=== PATIENT | female | born 1990 | race Caucasian/White ===

== ENCOUNTER 2016-07-16 10:20 | Emergency (ER) | payer SELFPAY ==
[2016-07-16 10:45] VITALS: BP 105/56
[2016-07-16] MEDS ORDERED: Cyclobenzaprine TAB* 10 MG PO ONE (11:19)
[2016-07-16] MEDS ORDERED: Ketorolac INJ* 60 MG/2 ML VIAL IM ONE (11:19)
--- NOTE | 2016-08-10 13:39 | ED ---
Back Pain - HPI Summary HPI Summary: Patient presents with back pain that began after doing heavy lifting at work. She felt a "pop" and has pain that shoots down into bilateral posterior thighs. Her pain is aggrevated with sitting position and improves when laying down. She had a similar episode several years ago. She denies incontinence of urine or stool, no N/T or difficulty ambulating. - History of Current Complaint Chief Complaint: EDBackInjuryPain Stated Complaint: BACK, LEG PAIN Time Seen by Provider: 07/16/16 10:55 Hx Obtained From: Patient Hx Last Menstrual Period: 08/29/14 Onset/Duration: Sudden Onset Onset/Duration: Started Hours Ago Timing: Constant Back Pain Location: Radiates To - bilateral thighs Severity Initially: Moderate Severity Currently: Mild Pain Intensity: 2 Pain Scale Used: 0-10 Numeric Character: Aching, Stiffness Aggravating Symptom(s): Movement, Bending Alleviating Symptom(s): Position Associated Signs And Symptoms: Positive: Negative Related History: Similar Episode Dx As - Allergies/Home Medications Allergies/Adverse Reactions: Allergies Allergy/AdvReac Type Severity Reaction Status Date / Time Amoxicillin Allergy Hives Verified 11/27/14 08:26 PMH/Surg Hx/FS Hx/Imm Hx Previously Healthy: Yes Endocrine/Hematology History: Denies: Hx Anticoagulant Therapy, Hx Diabetes, Hx Thyroid Disease Cardiovascular History: Denies: Hx Hypertension, Hx Pacemaker/ICD Respiratory History: Denies: Hx Asthma, Hx Chronic Obstructive Pulmonary Disease (COPD) GI History: Denies: Hx Ulcer History: Denies: Hx Renal Disease Sensory History: Reports: Hx Contacts or Glasses - READING GLASSES Denies: Hx Hearing Aid Opthamlomology History: Reports: Hx Contacts or Glasses - READING GLASSES Neurological History: Denies: Hx Dementia, Hx Seizures Psychiatric History: Denies: Hx Substance Abuse - Surgical History Surgery Procedure, Year, and Place: Tonsillectomy and adenoidectomy, tubes in ears as a child, right FOOT SURGERY 02/2013 Hx Anesthesia Reactions: No Infectious Disease History: No Infectious Disease History: Denies: Hx Clostridium Difficile, Hx Hepatitis, Hx Human Immunodeficiency Virus (HIV), Hx of Known/Suspected MRSA, Hx Shingles, Hx Tuberculosis, Hx Known/ Suspected VRE, Hx Known/Suspected VRSA, History Other Infectious Disease, Traveled Outside the [place] in Last 30 Days - Family History Known Family History: Positive: Cardiac Disease - Social History Occupation: Employed Full-time Lives: With Family Alcohol Use: Rare Substance Use Type: Reports: None Smoking Status (MU): Light Every Day Tobacco Smoker Type: Cigarettes Amount Used/How Often: 2-3 cigs daily Cessation Counseling: Patient Advised to Stop Review of Systems Positive: Myalgia Negative: Weakness, Paresthesia, Numbness All Other Systems Reviewed And Are Negative: Yes Physical Exam Triage Information Reviewed: Yes Vital Signs On Initial Exam: Initial Vitals Temp Pulse Resp BP Pulse Ox 97.5 F 79 24 147/99 100 07/16/16 10:28 07/16/16 10:28 07/16/16 10:28 07/16/16 10:28 07/16/16 10:28 Vital Signs Reviewed: Yes Appearance: Positive: Well-Appearing, Pain Distress, Obese Skin: Positive: Warm, Skin Color Reflects Adequate Perfusion, Dry, Soft Head/Face: Positive: Normal Head/Face Inspection Eyes: Positive: EOMI, DAVID, Conjunctiva Clear ENT: Positive: Hearing grossly normal Respiratory/Lung Sounds: Positive: Breath Sounds Present Cardiovascular: Positive: RRR Abdomen Description: Positive: Nontender, Soft Musculoskeletal: Positive: Strength/ROM Intact, Pain @ - TTP bilateral SI joints ; non-tender over buttocks to bilateral posterior thighs. Negative: Edema Left , Edema Right Neurological: Positive: Sensory/Motor Intact, Alert, Oriented to Person Place, Time, NV Bundle Intact Distally, Normal Gait Psychiatric: Positive: Affect/Mood Appropriate AVPU Assessment: Alert - Gould Coma Scale Coma Scale Total: 15 Diagnostics - Vital Signs Vital Signs Temp Pulse Resp BP Pulse Ox 07/16/16 10:41 98.4 F 78 15 105/56 100 07/16/16 10:28 97.5 F 79 24 147/99 100 - Laboratory Lab Statement: Any lab studies that have been ordered have been reviewed, and results considered in the medical decision making process. Re-Evaluation - Re-Evaluation First Eval Re-Evaluation Time: 12:45 Change: Improved Comment: Pain has diminished Back Pain Course/Dx - Diagnoses Differential Diagnosis/HQI/PQRI: Positive: Arthritis, Cauda Equina Syndrome, Fracture, Herniated Disc, Strain, Sprain Provider Diagnoses: Low back strain Discharge - Discharge Plan Condition: Stable Disposition: HOME Prescriptions: Cyclobenzaprine TAB* [Flexeril 10 MG TAB*] 10 mg PO TID PRN #15 tab PRN Reason: Pain Ibuprofen TAB* [Motrin TAB* 800 MG] 800 mg PO TID PRN #60 tab PRN Reason: Pain Patient Education Materials: Low Back Strain (ED) Forms: *Work Release Referrals: Dale Yañez MD [Primary Care Provider] - Additional Instructions: Please begin taking ibuprofen 800mg three times daily with meals tomorrow at lunch for the next 3-5 days. Use the muscle relaxer for muscle pain. Apply heat or ice several times daily and rest. Follow-up with your primary care provider if your symptoms do not begin to improve in the next 3-5 days. Return to the emergency department if symptoms worsen.
== END 2016-07-16 13:21 | disposition home or self-care (01) ==
LOC: ED 10:20
DX: M79.606 Pain in leg, unspecified (principal); S39.012A Strain of muscle, fascia and tendon of lower back, initial encounter; X58.XXXA Exposure to other specified factors, initial encounter; Y93.9 Activity, unspecified; Y92.89 Other specified places as the place of occurrence of the external cause; Y99.9 Unspecified external cause status
CPT/HCPCS: 96372; 99282; A9270-GY; J1885

== ENCOUNTER 2019-02-15 14:25 | Emergency (ER) | payer SELFPAY ==
[2019-02-15 14:35] VITALS: BP 116/74
--- NOTE | 2019-02-15 14:46 | UC ---
Throat Pain/Nasal Wilber HPI - HPI Summary HPI Summary: 28 yo with acute vomiting illness 5 days ago which resolved completely. Four days ago, developed a sore raspy throat and progressive cough with some chest tightness. Hx of asthma as a child, no recent need for inhalers. Former smoker, but is exposed to smoke within the home. Several months ago had a temporary filling in an upper molar, and has not had follow up due to a change in insurance. Today she is aware of sensitivity in the tooth along with swelling of the left cheek. No fever since 2 days ago. - History of Current Complaint Chief Complaint: UCRespiratory Stated Complaint: FACIAL SWELLING Time Seen by Provider: 02/15/19 14:36 Hx Obtained From: Patient Hx Last Menstrual Period: last month ?: No Onset/Duration: Gradual Onset, Lasting Days Severity: Moderate Pain Intensity: 7 Cough: Nonproductive Associated Signs & Symptoms: Positive: Sinus Discomfort, Fever. Negative: Dysphagia, Wheezing - Epiglottits Risk Factors Epiglottis Risk Factors: Negative - Allergies/Home Medications Allergies/Adverse Reactions: Allergies Allergy/AdvReac Type Severity Reaction Status Date / Time amoxicillin Allergy Hives Verified 02/15/19 14:35 PMH/Surg Hx/FS Hx/Imm Hx Previously Healthy: Yes Other History Of: Negative For: Anticoagulant Therapy - Surgical History Surgical History: Yes Surgery Procedure, Year, and Place: Tonsillectomy and adenoidectomy, tubes in ears as a child, right FOOT SURGERY 02/2013 - Family History Known Family History: Positive: Diabetes - mother has re-diabetes. - Social History Occupation: Employed Full-time Lives: With Family Alcohol Use: Rare Substance Use Type: None Smoking Status (MU): Former Smoker Type: Cigarettes Amount Used/How Often: 2-3 cigs daily Household Exposure Type: Cigarettes Review of Systems All Other Systems Reviewed And Are Negative: Yes Constitutional: Positive: Fever Skin: Positive: Negative Eyes: Positive: Negative ENT: Positive: Dental Pain, Sore Throat, Nasal Discharge, Sinus Congestion Respiratory: Positive: Cough. Negative: Shortness Of Breath Cardiovascular: Positive: Negative Gastrointestinal: Positive: Negative Genitourinary: Positive: Negative Motor: Positive: Negative Neurovascular: Positive: Negative Musculoskeletal: Positive: Negative Neurological: Positive: Negative Psychological: Positive: Negative Is Patient Immunocompromised?: No Physical Exam Triage Information Reviewed: Yes Appearance: No Pain Distress, Ill-Appearing Vital Signs: Initial Vital Signs Temp 96.3 F 02/15/19 14:31 Pulse 66 02/15/19 14:31 Resp 18 02/15/19 14:31 BP 116/74 02/15/19 14:31 Pulse Ox 100 02/15/19 14:31 Eyes: Positive: Conjunctiva Clear ENT: Positive: Pharyngeal erythema, TM dull, TM red - on the right. Dental: Positive: Percussion Tenderness @ - 14, Dental Fracture @ - 14, Other: - mild diffuse left cheek swelling. Neck: Positive: Supple, Nontender, No Lymphadenopathy Respiratory: Positive: Lungs clear, Normal breath sounds Cardiovascular: Positive: RRR, No Murmur Musculoskeletal Exam: Normal Neurological Exam: Normal Psychological Exam: Normal Images Dental: 1 - fractured tooth with temporary filling, gum inflammation Throat Pain/Nasal Course/Dx - Course Course Of Treatment: clindamycin to treat dental abscess but also to give coverage for sinus and early ear infection. Ibuprofen as needed for control of pain. - Differential Dx/Diagnosis Provider Diagnosis: Dental abscess, Otitis media Discharge ED - Sign-Out/Discharge Documenting (check all that apply): Patient Departure All imaging exams completed and their final reports reviewed: No Studies - Discharge Plan Condition: Good Disposition: HOME Prescriptions: Clindamycin Cap(NF) [Clindamycin Cap 300 mg Cap(NF)] 300 mg PO TID #21 cap Patient Education Materials: Dental Abscess (ED), Ear Infection (ED) Referrals: Dale Yañez MD [Primary Care Provider] - Additional Instructions: Begin clindamycin for treatmen of dental infection, but it will also cover ear and sinus infections. Take the full course of antibiotcs for treatment. Use ibuprofen as needed for control of pain. Ensure that you schedule a dental follow up to address the problem tooth. - Billing Disposition and Condition Condition: GOOD Disposition: Home
== END 2019-02-15 15:13 | disposition home or self-care (01) ==
LOC: UCEAST 14:25
DX: K04.7 Periapical abscess without sinus (principal); H66.91 Otitis media, unspecified, right ear; R11.10 Vomiting, unspecified; J02.9 Acute pharyngitis, unspecified; R09.81 Nasal congestion; R09.89 Other specified symptoms and signs involving the circulatory and respiratory systems; R05 Cough; Z88.0 Allergy status to penicillin; Z87.891 Personal history of nicotine dependence
CPT/HCPCS: 99212; G0463

== ENCOUNTER 2023-07-29 06:51 | Inpatient (IN) ==
[~2023-07-29 06:51] MED LIST: Lactated Ringers 1000 ml BAG 1,000 ML IV SCH
[2023-07-29] MEDS: Lactated Ringers 1000 ml BAG 1,000 ML IV ONE (07:30)
[2023-07-29] MEDS: Buffered Lidocaine 1% SYRIN 1 ml INTRADERM ONE ×2 (07:43→08:21)
[2023-07-29] MEDS: Famotidine IV 10 MG/ML 2 ml VIAL (20 mg) IV ONE (07:49)
[2023-07-29] MEDS: ceFOXitin 2 GM IVPREMIX 2 GM/50 ML BAG IVPB ONE (08:22)
[2023-07-29] MEDS: Lactated Ringers 1000 ml BAG 1,000 ML IV SCH (08:25)
[2023-07-29 08:56] LABS: ABS Basophils 0.1 10^3/uL (0.0-0.1); ABS Eosinophils 0.1 10^3/uL (0.0-0.5); ABS Lymphocytes 2.1 10^3/uL (1.0-4.8); ABS Monocytes 0.5 10^3/uL (0.0-0.9); ABS Neutrophils 6.1 10^3/uL (1.5-7.6); Anisocytosis 1+; Eosinophil % 0.8 %; Hematocrit 33.5 % (35-45); Hemoglobin 11.1 g/dL (11.5-14.3); Lymphocyte % 23.2 %; Mean Corpuscular Hemoglobin 24.9 pg (27-33); Mean Corpuscular Hgb Conc 33.2 g/dL (31-36); Mean Platelet Volume 10.5 fL (7.5-11.2); Microcytosis 2+; Platelet Count 184 10^3/uL (150-450); Red Blood Count 4.46 10^6/uL (3.63-4.92); Red Cell Distribution Width 16.1 % (12-17); White Blood Count 8.9 10^3/uL (3.8-11.8)
[2023-07-29] MEDS: Sodium Citrate/Citric Acid LIQ 15 ML UDC PO ONE ×2 (09:17→09:19)
[2023-07-29] MEDS ORDERED: Oxytocin 10 UNITS/ML 1 ML VIAL ONE (09:27)
[2023-07-29] MEDS ORDERED: Ondansetron 4 mg VIAL 2 MG/ML 2 ml VIAL ONE (09:27)
[2023-07-29] MEDS ORDERED: Bupivacaine 0.5% SDV PF 30ML VIAL ONE (09:28)
[2023-07-29] MEDS ORDERED: Morphine PF AMP (0.5MG/ML) 5 MG/10 ML AMP ONE (09:29)
[2023-07-29] MEDS ORDERED: Phenylephrine IV 10 MG/ML 1 ml VIAL ONE (10:17)
[2023-07-29] MEDS ORDERED: Dexamethasone IV 4 MG/ML VIAL 1 ml VIAL ONE (10:38)
[2023-07-29] MEDS ORDERED: Acetaminophen IV 1 GM/100ML 1,000 MG/100 ML BAG IV ONE (10:43)
[2023-07-29] MEDS ORDERED: Naloxone 0.4 mg VIAL 0.4 mg/ml 1 ml VIAL IV PUSH PRN (11:02)
[2023-07-29] MEDS ORDERED: Ondansetron 4 mg VIAL 2 MG/ML 2 ml VIAL IV PRN (11:02)
[2023-07-29] MEDS ORDERED: Metoclopramide 5 MG/ML VIAL (10 mg) IV PRN (11:02)
[2023-07-29] MEDS ORDERED: Acetaminophen IV 1 GM/100ML 1,000 MG/100 ML BAG IV PRN (11:02)
[2023-07-29] MEDS ORDERED: Naloxone 0.4 mg VIAL 0.4 mg/ml 1 ml VIAL IV PRN (11:04)
[2023-07-29 11:43] LABS: Urine Appearance Clear; Urine Bilirubin Negative (Negative); Urine Blood Negative (Negative); Urine Color Colorless; Urine Glucose Negative (Negative); Urine Ketones Negative (Negative); Urine Nitrite Negative (Negative); Urine Protein Negative (Negative); Urine Specific Gravity 1.006 (1.002-1.030); Urine Urobilinogen Negative (Negative)
[2023-07-29 11:45] LABS: Urine Benzodiazepine Screen None Detected (None Detect); Urine Cannabinoids Screen None Detected (None Detect); Urine Opiates Screen None Detected (None Detect)
[2023-07-29] MEDS ORDERED: Glycerin ADULT 2.4 gm SUPP PR PRN (11:52)
[2023-07-29] MEDS ORDERED: Witch Hazel PAD JAR TOPICAL PRN (11:52)
[2023-07-29] MEDS ORDERED: Dibucaine 1% OINT 28.35 GM TUBE PR PRN (11:52)
[2023-07-29] MEDS ORDERED: Lactated Ringers 1000 ml BAG 1,000 ML IV SCH (12:00)
[2023-07-29] MEDS: Oxytocin in LR 20,000 MILLI.UNIT/1,000 ML BAG IV SCH (17:35)
[2023-07-30 08:11] LABS: ABS Lymphocytes 1.9 10^3/uL (1.0-4.8); ABS Monocytes 0.9 10^3/uL (0.0-0.9); ABS Neutrophils 11.4 10^3/uL (1.5-7.6); ABS Nucleated RBC 0.01 10^3/ul; Eosinophil % 0.1 %; Hematocrit 28.4 % (35-45); Hemoglobin 9.3 g/dL (11.5-14.3); Lymphocyte % 13.3 %; Mean Corpuscular Hemoglobin 24.8 pg (27-33); Mean Corpuscular Hgb Conc 32.7 g/dL (31-36); Mean Platelet Volume 9.7 fL (7.5-11.2); Platelet Count 149 10^3/uL (150-450); Red Blood Count 3.74 10^6/uL (3.63-4.92); Red Cell Distribution Width 16.1 % (12-17); White Blood Count 14.2 10^3/uL (3.8-11.8)
[2023-07-31 08:01] VITALS: BP 121/53
== END 2023-07-31 13:20 | disposition home or self-care (01) | DRG 540 ==
LOC: MCHOB 06:51
PROVIDERS: ADMIT Obstetrics & Gynecology; ATTEND Obstetrics & Gynecology